=== PATIENT | male | born 1945 | race Caucasian/White ===

== ENCOUNTER 2016-06-21 08:51 | Day surgery (SDC) | payer MEDICARE ==
[~2016-06-21] VITALS: Ht 172.7 cm; Wt 107.2 kg
[~2016-06-21 08:51] MED LIST: ALBU18HF INH; CeFAZolin 2 Gm/50 mL D5W IV Premix IV ONE; FLAX100038 PO; KEN25CR EXT; LISI-567 PO; MEGE20TA PO; PRAZ2CAP2 PO; SIMV40TA5 PO
[2016-06-21] MEDS ORDERED: MetoCLOpramide 5 mg/mL 2 mL Inj ONE (08:52)
[2016-06-21] MEDS ORDERED: Ondansetron 2 mg/mL 2 mL Inj ONE (08:52)
[2016-06-21] MEDS ORDERED: Propofol 10,000 mCg/mL 20 mL Inj ONE (08:52)
[2016-06-21] MEDS ORDERED: fentaNYL-PF 50 mCg/mL 2 mL Inj ONE (08:52)
[2016-06-21] MEDS ORDERED: Dexamethasone 4 mg/mL Inj ONE (08:52)
[2016-06-21 09:53] VITALS: BP 119/73; PULSE 72; RESP 20; O2SAT 97
[2016-06-21] MEDS: Lactated Ringer's 1,000 ML IV SCH ×2 (10:05→11:14)
[2016-06-21] MEDS ORDERED: Iopamidol-300 50 mL Inj IV ONE (10:56)
[2016-06-21] MEDS ORDERED: Lactated Ringer's 1,000 ML IV SCH (11:37)
[2016-06-21] MEDS ORDERED: Lactated Ringer's 500 ML IV PRN (11:37)
[2016-06-21] MEDS ORDERED: Atropine 0.4 mg/mL Inj IVPUSH PRN (11:40)
[2016-06-21] MEDS ORDERED: Phenylephrine 10,000 mCg/mL Inj IVPUSH PRN (11:40)
[2016-06-21] MEDS ORDERED: Labetalol 5 mg/mL 4 mL Inj IV PRN (11:40)
[2016-06-21] MEDS ORDERED: Ondansetron 2 mg/mL 2 mL Inj IVPUSH PRN (11:40)
[2016-06-21] MEDS ORDERED: MetoCLOpramide 5 mg/mL 2 mL Inj IVPUSH PRN (11:40)
[2016-06-21] MEDS ORDERED: fentaNYL-PF 50 mCg/mL 2 mL Inj IVPUSH PRN (11:40)
[2016-06-21] MEDS ORDERED: EPHEDrine Sulfate 50 mg/mL Inj IVPUSH PRN (11:40)
[2016-06-21] MEDS ORDERED: hydrALAZINE 20 mg/mL Inj IVPUSH PRN (11:40)
[2016-06-21 12:05] VITALS: BP 105/81; PULSE 77; RESP 20; O2SAT 100
[2016-06-21] MEDS ORDERED: Lactated Ringer's 1,000 ML IV ONE (12:05)
[2016-06-21 12:10] VITALS: BP 127/77; PULSE 70; RESP 19; O2SAT 100
[2016-06-21 12:25] VITALS: BP 124/77; PULSE 62; RESP 18; O2SAT 99
[2016-06-21] MEDS ORDERED: HYDROcodone-APAP 5-325 mg Tablet PO PRN (12:25)
[2016-06-21 12:40] VITALS: BP 131/86; PULSE 70; RESP 16; O2SAT 98
[2016-06-21 12:56] VITALS: BP 145/81; PULSE 74; RESP 18; O2SAT 99
--- NOTE | 2016-06-21 13:54 | OP ---
[address] [address] OPERATIVE REPORT PATIENT: MARCIAL AREVALO : 1945 MR#: [id number] ADMIT: 06/21/2016 JOB ID: [id number] DATE OF SURGERY: 06/21/2016 PREOPERATIVE DIAGNOSIS(ES): Left hydroureteronephrosis. POSTOPERATIVE DIAGNOSIS(ES): Left hydroureteronephrosis. PROCEDURE PERFORMED: 1. Pelvic exam under anesthesia. 2. Cystoscopy with left retrograde pyelogram. 3. Left attempted ureteroscopy. 4. Left ureteral stent placement. SURGEON: Reema Vasquez MD. GRINDER GEAR: None. FINDINGS: 1. Normal pelvic exam without any lesions or masses. 2. Nodular tissue around the left ureteral orifice and trigone. 3. Left hydroureteronephrosis. ANESTHESIA: General. ESTIMATED BLOOD LOSS: None. DRAINS: A 6 x 26 left double-J ureteral stent. SPECIMENS: None. COMPLICATIONS: None. CONDITION: Stable. INDICATION FOR PROCEDURE: The patient is a 71-year-old gentleman who on evaluation for worsening renal function was found to have left hydroureteronephrosis and a possible left ureterovesical junction stone. He now presents for the aforementioned procedures. DESCRIPTION OF PROCEDURE: After informed consent was obtained, the patient was taken to the operating room. A time-out was performed identifying correct patient, surgical site, and procedure. General anesthesia was smoothly induced. He was given intravenous antibiotics just prior to the start of the procedure. A 22-English rigid cystoscope was applied to the patient's urethra and advanced into the bladder. The bladder was drained. The left ureteral orifice was seen in a bit of a mounded up appearance. The orifice appeared to be somewhat small. There was some nodular tissue around the orifice, as well as the surrounding trigone. It was attempted to cannulate the orifice with a 5-English open-ended Pollack catheter. It was not possible to do so. A wire was placed through the Pollack and used to guide the Pollack to the distal ureter. A retrograde pyelogram was performed. There was a torturous ureter, which was severely dilated. Next, two wires were then advanced to the renal pelvis which was a little difficult given the tortuosity of the ureter but they were advanced to the renal pelvis. Semi-rigid ureteroscopy was attempted multiple times to no avail. A 10-English dual lumen was attempted to be placed over the wire to dilate the ureteral orifice. This measure did not yield any further success in navigating the ureteroscope beyond the ureterovesical junction. It was decided to terminate the procedure and place a stent. One of the wires was backloaded into the cystoscope, and a 6 x 26 double-J ureteral stent was placed and navigated to the renal pelvis seen on fluoroscopy. The wire was then removed leaving a nice coil in the patient's bladder seen under direct vision. The cystoscope was then removed. A rectal exam was performed. There were no unusual masses detected on pelvic exam. The patient was then reversed from general anesthesia and taken to the PACU in good and stable condition. Postoperatively, it was discussed with the patient's the intraoperative findings. I have recommended bladder biopsy at the time of his next ureteroscopy. She voiced understanding. PHAM
--- NOTE | 2016-06-21 15:04 | DRSVH ---
PROCEDURE: X-RAY RETROGRADE UROGRAPHY INDICATIONS: LEFT CYSTO AND STENT PLACEMENT TECHNIQUE: 4 intra-operative images acquired by the Urology service. COMPARISON: None. FINDINGS: Multiple surgical clips in the pelvis. Images were obtained during left retrograde urograp hy showing a dilated ureter with subsequent stent placement. IMPRESSION: Intraoperative documentation of left retrograde pyelogram and stent placement Dictated by: Hector Muhammad M.D. on 06/21/2016 at 15:02 Approved by: Hector Muhammad M.D. on 06/21/2016 at 15:02
--- NOTE | 2016-06-21 16:47 | PCM.ANEP1 ---
Post Anesthesia Phase 1 PACU Phase 1 Assessment Vital Signs Vital Signs Date Time Temp Pulse Resp B/P Pulse Ox O2 Delivery O2 Flow Rate FiO2 06/21/16 12:56 74 18 145/81 99 06/21/16 12:40 70 16 131/86 98 Room Air 06/21/16 12:25 62 18 124/77 99 Room Air 06/21/16 12:10 70 19 127/77 100 Room Air 06/21/16 12:05 36.8 77 20 105/81 100 Simple Mask 10 06/21/16 09:53 36.0 72 20 119/73 97 Room Air Anesthetic Administered: GA Level of Alertness: Awake, talking BIRD's with Equal Strength: Yes Pain: No Nausea or Vomiting: No Oxygen Delivery: Room Air Lungs: Clear to Auscultation, Normal Air Movement Dermatome Level: Full Sensation Mohit Lafleur MD Jun 21, 2016 16:47
--- NOTE | 2016-06-21 16:47 | PCM.ANEP2 ---
Post Anesthesia Evaluation ASA/CMS Post Anesthesia VS in Patient's Normal Range?: Yes Resp Stable; Airway Patent?: Yes CV Function & Hydration Stable: Yes Mental Status Recovered?: Yes Pain control Satisfactory?: Yes N/V Control Satisfactory?: Yes Mohit Lafleur MD Jun 21, 2016 16:47
--- NOTE | 2016-06-21 16:47 | PCM.HPANE ---
Patient Data Surgeon Admitting Provider: Attending Provider:Reema Vasquez MD Primary Care Physician:Maribel Gil PA-C Other Provider:Bianka Pearce Anesthesia Reason for Visit Left Kidney Stone Ht/WT & BMI Height (Feet): 5 Height (Inches): 8.00 Weight (Kilograms): 107.2 Body Mass Index 35.00 Allergies Coded Allergies: ciprofloxacin (Verified Allergy, Severe, MUSCLE ACHES, FATIGUE, GENERAL MALAISE, 06/21/16) Past Anesthesia History Anesthesia History: Denies:: Anesthesia Reactions, Fam Anesthesia Reaction, Fam Malignant Hypertherm, Malignant Hyperthermia Diabetes History Hx Diabetes?: No MRSA MRSA: No Medications Hypertension Medication: Yes Home Meds Incl Beta Maryjo: No Reported Medications Albuterol Sulfate (Ventolin HFA Inhaler)200 Puff/18 Gm Inhaler2 Puff INH Q4 PRN For Wheezing #1 INHALER Ref 0 06/20/16 Triamcinolone Acet (Triamcinolone Acetonide Cream)1 Applic/0.25 Gm Cr1 Applic EXT BID #60 GM Ref 0 06/20/16 Simvastatin 40 Mg Oevhte36 Mg PO HS 30 Days Ref 0 06/20/16 Prazosin 2 Mg Capsule2 Mg PO HS 06/20/16 Megestrol Acetate 20 Mg Pgvqae52 Mg PO BID 06/20/16 Lisinopril 20 Mg Lvkcoy82 Mg PO DAILY 30 Days Ref 0 06/20/16 Flaxseed Oil ([place]-3 Flaxseed Oil)1,000 Mg Capsule1,000 Mg PO DAILY 06/20/16 Discontinued Reported Medications Oxycodone/APAP-Expunged Drug, Do Not Renew! (Percocet 5/325-Expunged Drug, Do Not Renew!)1 Each Tablet1 Tab PO Q4 PRN 11/09/11 Cephalexin-Expunged Drug, Do Not Renew! 500 Mg Oxpyvse837 Mg PO BID 11/09/11 Hydrochlorothiazide-Expunged, Do Not Renew! 25 Mg Xgeovk02.5 Mg PO DAILY 11/09/11 Aspirin-Expunged Drug, Do Not Renew! 325 Mg Jojrvh125 Mg PO DAILY 10/30/11 Lisinopril-Expunged Drug, Do Not Renew! 2.5 Mg Rngmnq21 Mg PO 10/30/11 Simvastatin-Expunged Drug, Choose New Med! 20 Mg Yeajre60 Mg PO HS 10/30/11 History History of ENT Problems?: Yes HEENT History: Positive for:: Cataracts (starting of ) Hearing Problem Sinus Problem (Chronic Sinus infections ) Hx of Heart Problems?: Yes Cardiovascular History: Positive for:: Hypertension (hyperlipidemia) Thrombophlebitis (blood clot to the leg) Hx of Respiratory Problem?: Yes Respiratory History: Positive for:: Asthma Use of Inhalers / NEBS Denies:: COPD Dyspnea Emphysema Oxygen Administration Pneumonia Tuberculosis Use of C-PAP Machine Hx Neurologic Problems?: Yes Neurological History: Positive for:: Dizziness (Benign Positional Vertigo / one time only 10/24) Headaches Denies:: CVA Multiple Sclerosis Parkinson's Disease Seizures TIA Hx of GI Problems?: No Hx of Problems?: Yes Genitourinary History: Positive for:: Kidney Stones (left kidney stone current admission problem ) Male Hx: Positive for:: Prostate Problems (Prostate CA, hx of RRPL) Denies:: Scrotal Mass Testicular Surgery Skin History: Denies:: History Skin Disorders? Hx Musculoskeletal Problems?: Yes Hx of Psycho/Social Problems?: No Hx Surgeries?: Yes (RT CTR Tonsils , Radical retropubic, pelvic lymph node diss ) Hx Any Other Health Problems?: Yes Other History: Positive for:: Cancer (Prostate CA) Denies:: Endocrine Disease Hospitalization Thyroid Disease History Blood Transfusions: Denies:: Blood Transfusions Hx Diabetes: No Hx Alcohol Use: YesHx Substance Use: NoHave You Smoked inLast 12 mo: No ( Quit 1969) Stop/Bang S-Snoring: Do You Snore Loudly: No T-Tired: feel tired, fatigued: No O-Obsered: Observed not breath: No P-Blood Pressure: treated: Yes B- Body Mass Index > 35 kg/m2: Yes A- Age over 50: Yes N- Neck Large Circumference: No G- Gender Male: Yes JELLY Total Score: 4 Risk Assessment Category Category 1A: Patient has history of documented sleep apnea, and HAS NOT received any narcotic, sedative or anesthesia administration during this stay. Category 1B: Patient has history of documented sleep apnea, and HAS received any narcotic , sedative or anesthesia administration during this stay Category 2: Patient has SUSPECTED Obstructive Sleep Apnea, and HAS received any narcotic , sedative or anesthesia administration during this stay. Category 3: Patient has SUSPECTED Obstructive Sleep Apnea and HAS NOT received narcotic, sedative or anesthesia administration during this stay. Category 4: Outpatient in Procedural Areas with known sleep apnea or who screen positive for High Risk via the STOP/BANG questionnaire. Exam Exam Vital Signs Vital Signs Date Time Temp Pulse Resp B/P Pulse Ox O2 Delivery O2 Flow Rate FiO2 06/21/16 09:53 36.0 72 20 119/73 97 Room Air General Appearance: Alert, Oriented X3, Cooperative, No Acute Distress HEENT/AIRWAY: MP 2 Lungs: Clear to Auscultation, Normal Air Movement Heart: Exam Unremarkable, Regular Rate/Rhythm, No Murmurs/Rubs/Gallops, Other Plan Impression Patient chart reviewed, patient interviewed and anesthestic plan with risks, benefits, and alternatives discussed, and informed consent obtained. NPO Status: 1730 ASA Physical Status: ASA2 Mod Systemic Disease Anesthetic Plan: GA Bene/Risks/Altern/Consents: Yes HP Complete Prior to Induction: Yes Mohit Lafleur MD Jun 21, 2016 09:57
[2016-07-03] MEDS ORDERED: lupron (13:03)
[2016-08-14] MEDS ORDERED: BICA50TA2 PO (15:59)
[2016-09-25] MEDS ORDERED: BETA1TAB19 PO (16:10)
[2016-09-25] MEDS ORDERED: OXYB5TAB10 PO (16:10)
[2016-09-25] MEDS ORDERED: FLAX100038 PO (16:10)
[2016-09-25] MEDS ORDERED: CALC-78 PO (16:10)
== END 2016-06-21 23:59 | disposition home or self-care (01) ==
LOC: SAS 08:51
PROVIDERS: ATTEND Urology
DX: N13.30 Unspecified hydronephrosis (principal); R94.4 Abnormal results of kidney function studies
CPT/HCPCS: 52332; 74420; C2617; J0690; J1100; J2405; J2765; J7120; Q9967

== ENCOUNTER 2016-06-28 14:23 | Day surgery (SDC) | payer MEDICARE ==
[~2016-06-28] VITALS: Ht 172.7 cm; Wt 107.8 kg
[2016-06-28] VITALS (11 sets, daily range): BP systolic 127–166; BP diastolic 75–99; PULSE 68–83; RESP 14–16; O2SAT 97–98
[~2016-06-28 14:23] MED LIST changes: +Lactated Ringer's 1,000 ML IV SCH
[2016-06-28] MEDS ORDERED: fentaNYL-PF 50 mCg/mL 2 mL Inj ONE (14:24)
[2016-06-28] MEDS ORDERED: Phenylephrine/NS-PF 100 mCg/mL 5 mL Syringe IVPUSH ONE (14:24)
[2016-06-28] MEDS ORDERED: Dexamethasone 4 mg/mL Inj ONE (14:24)
[2016-06-28] MEDS ORDERED: Propofol 10,000 mCg/mL 20 mL Inj ONE (14:24)
[2016-06-28] MEDS ORDERED: Ondansetron 2 mg/mL 2 mL Inj ONE (14:24)
[2016-06-28] MEDS ORDERED: CeFAZolin 2 Gm/50 mL D5W Duplex Bag IV ONE (14:53)
[2016-06-28] MEDS ORDERED: Lactated Ringer's 1,000 ML IV ONE (15:00)
[2016-06-28] MEDS ORDERED: DOCU-41 PO (15:49)
[2016-06-28] MEDS ORDERED: POLY17PO6 PO (15:49)
--- NOTE | 2016-06-28 16:55 | PCM.HPANE ---
Patient Data Date of Service: Jun 28, 2016 Surgeon Admitting Provider: Attending Provider:Reema Vasquez MD Primary Care Physician:Maribel Gil PA-C Other Provider:Bianka Pearce Anesthesia Reason for Visit Cystoscopy Ht/WT & BMI Height (Feet): 5 Height (Inches): 8 Weight (Kilograms): 107.8 Body Mass Index 36.00 Allergies Coded Allergies: ciprofloxacin (Verified Allergy, Severe, MUSCLE ACHES, FATIGUE, GENERAL MALAISE, 06/28/16) Past Anesthesia History Anesthesia History: Denies:: Anesthesia Reactions, Fam Anesthesia Reaction, Fam Malignant Hypertherm, Malignant Hyperthermia Diabetes History Hx Diabetes?: No MRSA MRSA: No Medications Hypertension Medication: Yes Home Meds Incl Beta Maryjo: No Reported Medications Docusate Sodium (Colace)100 Mg Wjdzlas849 Mg PO BID PRN For Constipation Ref 0 06/28/16 Polyethylene Glycol 3350 (Miralax)17 Gm Powd.pack17 Gm PO DAILY PRN For Constipation 06/28/16 Albuterol Sulfate (Ventolin HFA Inhaler)200 Puff/18 Gm Inhaler2 Puff INH Q4 PRN For Wheezing #1 INHALER Ref 0 06/20/16 Triamcinolone Acet (Triamcinolone Acetonide Cream)1 Applic/0.25 Gm Cr1 Applic EXT BID #60 GM Ref 0 06/20/16 Simvastatin 40 Mg Qnojbl17 Mg PO HS 30 Days Ref 0 06/20/16 Prazosin 2 Mg Capsule2 Mg PO HS 06/20/16 Megestrol Acetate 20 Mg Wzbpkq62 Mg PO BID 06/20/16 Lisinopril 20 Mg Fliiza27 Mg PO DAILY 30 Days Ref 0 06/20/16 Flaxseed Oil ([place]-3 Flaxseed Oil)1,000 Mg Capsule1,000 Mg PO BID 06/20/16 History History of ENT Problems?: Yes HEENT History: Positive for:: Cataracts (starting of ) Hearing Problem Sinus Problem (Chronic Sinus infections ) Hx of Heart Problems?: Yes Cardiovascular History: Positive for:: Hypertension (hyperlipidemia) Thrombophlebitis (blood clot to the leg) Denies:: AICD Heart Murmur Irregular Heartbeat Pacemaker Hx of Respiratory Problem?: Yes Respiratory History: Positive for:: Asthma Denies:: COPD Dyspnea Emphysema Oxygen Administration Pneumonia Tuberculosis Use of C-PAP Machine Hx Neurologic Problems?: Yes Neurological History: Positive for:: Dizziness (Benign Positional Vertigo / one time only 10/24) Headaches Denies:: CVA Multiple Sclerosis Parkinson's Disease Seizures Hx of GI Problems?: Yes Gastrointestinal History: Positive for:: Rectal Bleeding (recent post op constipation, strain has led to rectal bleeding) Hx of Problems?: Yes Genitourinary History: Positive for:: Kidney Stones (left kidney stone current admission problem ) Other Pertinent History: cysto, stent placed 06/21/16 Male Hx: Positive for:: Prostate Problems (Prostate CA, hx of RRPL) Denies:: Scrotal Mass Testicular Surgery Skin History: Denies:: History Skin Disorders? Hx Musculoskeletal Problems?: Yes Hx of Psycho/Social Problems?: No Hx Surgeries?: Yes (RT CTR Tonsils , Radical retropubic, pelvic lymph node diss ) Hx Any Other Health Problems?: Yes Other History: Positive for:: Cancer (Prostate CA) Denies:: Endocrine Disease Hospitalization Thyroid Disease History Blood Transfusions: Positive for:: Accept Blood Products? Denies:: Blood Transfusions Hx Diabetes: No Hx Alcohol Use: YesHx Substance Use: No Smoking Status: Former Smoker Have You Smoked inLast 12 mo: No (Quit 1969) Stop/Bang S-Snoring: Do You Snore Loudly: No T-Tired: feel tired, fatigued: No O-Obsered: Observed not breath: No P-Blood Pressure: treated: Yes B- Body Mass Index > 35 kg/m2: Yes A- Age over 50: Yes N- Neck Large Circumference: No G- Gender Male: Yes JELLY Total Score: 4 JELLY Risk Assessment: High Risk, =/>3 Yes JELLY Category 4 OutPt Procedure: Yes Risk Assessment Category Category 1A: Patient has history of documented sleep apnea, and HAS NOT received any narcotic, sedative or anesthesia administration during this stay. Category 1B: Patient has history of documented sleep apnea, and HAS received any narcotic , sedative or anesthesia administration during this stay Category 2: Patient has SUSPECTED Obstructive Sleep Apnea, and HAS received any narcotic , sedative or anesthesia administration during this stay. Category 3: Patient has SUSPECTED Obstructive Sleep Apnea and HAS NOT received narcotic, sedative or anesthesia administration during this stay. Category 4: Outpatient in Procedural Areas with known sleep apnea or who screen positive for High Risk via the STOP/BANG questionnaire. Exam Exam Vital Signs Vital Signs Date Time Temp Pulse Resp B/P Pulse Ox O2 Delivery O2 Flow Rate FiO2 06/28/16 15:00 36.7 82 16 127/80 97 Room Air General Appearance: Alert, Oriented X3, Cooperative, No Acute Distress HEENT/AIRWAY: MP 3, Neck Movement (full, thick), Mouth Opening (normal) Lungs: Clear to Auscultation, Normal Air Movement Heart: Exam Unremarkable, Regular Rate/Rhythm, No Murmurs/Rubs/Gallops Meds/Labs/Diagnostics Admission Meds Current Medications Lactated Ringer's (Lr) 1,000 ml @ ud STK-MED ONCE IV Last administered on 06/28t 15:00; Start 06/28/16 at 15:00; Stop 06/28/16 at 15:33; Status DC Plan Impression Patient chart reviewed, patient interviewed and anesthestic plan with risks, benefits, and alternatives discussed, and informed consent obtained. NPO Status: 0800 ASA Physical Status: ASA3 Severe Disease Anesthetic Plan: GA Bene/Risks/Altern/Consents: Yes HP Complete Prior to Induction: Yes Agus Machado MD Jun 28, 2016 16:55
[2016-06-28] MEDS ORDERED: Lactated Ringer's 1,000 ML IV SCH (17:41)
[2016-06-28] MEDS ORDERED: Lactated Ringer's 500 ML IV PRN (17:41)
[2016-06-28] MEDS ORDERED: EPHEDrine Sulfate 50 mg/mL Inj IVPUSH PRN (17:45)
[2016-06-28] MEDS ORDERED: Labetalol 5 mg/mL 4 mL Inj IV PRN (17:45)
[2016-06-28] MEDS ORDERED: Ondansetron 2 mg/mL 2 mL Inj IVPUSH PRN (17:45)
[2016-06-28] MEDS ORDERED: hydrALAZINE 20 mg/mL Inj IVPUSH PRN (17:45)
[2016-06-28] MEDS ORDERED: MetoCLOpramide 5 mg/mL 2 mL Inj IVPUSH PRN (17:45)
[2016-06-28] MEDS ORDERED: HYDROmorphone 1 mg/mL Inj IVPUSH PRN (17:45)
[2016-06-28] MEDS ORDERED: Atropine 0.4 mg/mL Inj IVPUSH PRN (17:45)
[2016-06-28] MEDS ORDERED: Phenylephrine 10,000 mCg/mL Inj IVPUSH PRN (17:45)
[2016-06-28] MEDS ORDERED: Dexamethasone 4 mg/mL Inj IVPUSH PRN (17:45)
[2016-06-28] MEDS ORDERED: fentaNYL-PF 50 mCg/mL 2 mL Inj IVPUSH PRN (17:45)
--- NOTE | 2016-06-28 18:03 | PCM.ANEP1 ---
Post Anesthesia Phase 1 PACU Phase 1 Assessment Date of Service: Jun 28, 2016 Vital Signs 36.4 131/82 90 19 98% FM Anesthetic Administered: GA Level of Alertness: Awake, talking BIRD's with Equal Strength: Yes Pain: No Nausea or Vomiting: No Oxygen Delivery: Simple Mask Lungs: Clear to Auscultation, Normal Air Movement Agus Machado MD Jun 28, 2016 18:03
--- NOTE | 2016-06-28 18:03 | PCM.ANEP2 ---
Post Anesthesia Evaluation ASA/CMS Post Anesthesia Date of Service: Jun 28, 2016 VS in Patient's Normal Range?: Yes Resp Stable; Airway Patent?: Yes CV Function & Hydration Stable: Yes Mental Status Recovered?: Yes Pain control Satisfactory?: Yes N/V Control Satisfactory?: Yes Agus Machado MD Jun 28, 2016 18:03
[2016-06-28] MEDS ORDERED: HYDROcodone-APAP 5-325 mg Tablet PO PRN (18:15)
--- NOTE | 2016-06-29 05:31 | OP ---
[address] [address] OPERATIVE REPORT PATIENT: MARCIAL AREVALO : 1945 MR#: [id number] ADMIT: 06/28/2016 JOB ID: [id number] DATE OF SURGERY: 06/28/2016 PREOPERATIVE DIAGNOSIS(ES): 1. Retained left ureteral stent. 2. Nodular bladder. POSTOPERATIVE DIAGNOSIS(ES): 1. Retained left ureteral stent. 2. Nodular bladder. PROCEDURE PERFORMED: 1. Cystoscopy. 2. Left ureteral stent removal. 3. Left retrograde pyelogram. 4. Left ureteroscopy. 5. Left ureteral stent placement. 6. Right retrograde pyelogram. 7. Bladder biopsy. SURGEON: Reema Vasquez MD. VETERINARY PARASITOLOGIST: None. FINDINGS: 1. Nodularity to the left trigone surrounding the left ureteral orifice. 2. No left ureteral stone. 3. Distorted position of the right ureteral orifice. ANESTHESIA: General. ESTIMATED BLOOD LOSS: Less than 5 mL. DRAINS: A 6 x 26 left double-J ureteral stent. SPECIMENS: Bladder biopsy. COMPLICATIONS: None. CONDITION: Stable. INDICATION FOR PROCEDURE: The patient is a 71-year-old gentleman who now presents with the aforementioned procedure after having undergone left ureteral stent placement. DESCRIPTION OF PROCEDURE: After informed consent was obtained, the patient was taken to the operating room. A time-out was performed identifying correct patient, surgical site, and procedure. General anesthesia was smoothly induced. He was given intravenous antibiotics prior to the start of the procedure. He was placed in the lithotomy position and all pressure points were identified and appropriately padded. His genitals were then prepped and draped in the usual sterile fashion. A 22-Bolivian rigid cystoscope was applied to the patient's urethral meatus and advanced into the bladder. The bladder was drained. The left ureteral orifice was seen with some bullous edema consistent with having a ureteral stent there. The stent was seen emanating from the orifice. It was grasped with stent graspers and manipulated down to the urethral meatus. It was cannulated with a sensor tip wire. It was navigated to the renal pelvis and seen under fluoroscopy. The stent was then removed and examined and ensured as removed in its entirety. A second sensor tip wire was then navigated to the renal pelvis as seen under fluoroscopy and attempted to perform semi-rigid ureteroscopy though the ureteroscope could not be advanced much beyond the ureteral orifice. A 12/14 access sheath, 28 cm long was then navigated to the distal ureter. The flexible ureteroscope was navigated to the ureter and a retrograde pyelogram was performed. There was some hydronephrosis there. The kidney and every calyx was examined. There were no stones. The ureteroscope was then brought down under direct vision. The ureter was normal. There was no evidence of stones present. The cystoscope and a 6 x 26 double J ureteral stent was loaded over it. The wire was then removed, leaving a nice coil in the patient's bladder as seen under direct vision. Upon examination of the bladder, there was another ureteral orifice seen with the urine effluxing from it. It was in a distorted position, given its history of prostatectomy, though it was not clear if this could have been an ectopic, duplicated left ureteral orifice. So it was cannulated with a 5-Bolivian open ended Pollack and a retrograde pyelogram was performed. This was determined at that point to be his right ureteral orifice given the location of the contrast on fluoroscopy. The Pollack was then removed. Cold cup biopsy forceps was then used to biopsy the somewhat nodular area around the left ureteral orifice, and it was sent off as bladder biopsy. This site was then fulgurated with Bugbee electrode. The patient's bladder was then drained and re-examined. There was excellent hemostasis. The patient was then reversed from general anesthesia and taken to the PACU in good and stable condition. PHAM
--- NOTE | 2016-07-02 14:45 | PATH ---
SURGICAL PATHOLOGY Attending Physician:Reema Vasquez, CASE STATUS: Signed Out PATIENT NAME: MARCIAL AREVALO PID: [id number] : 1945 DATE COLLECTED:06/28/2016 23:40 SPECIMEN: Bladder, Biopsy CLINICAL HISTORY: LEFT HYDRONEPHROSIS 1). 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 ICD10 CODE C79.11 GROSS DESCRIPTION: The specimen is received in one formalin filled container labeled with the patient's name, sublabeled "bladder" and consists of a 0.3 x 0.3 x 0.3 CM portion of tissue and blood which is entirely submitted in one cassette. David-white MICRO DESCRIPTION: Sections are of a biopsy of urinary bladder. Some urothelium is identified; however, most of the tissue is involved with a poorly-differentiated adenocarcinoma. In some areas, the tumor cells form small glandular structures, but in most areas they consist of undifferentiated cells with no organoid differentiation. Some signet ring type cells are present. The nuclei contain prominent nucleoli. Immunohistochemistry is performed in order to identify the origin of these cells. Immunohistochemistry results: PSA: Tumor cells strongly positive Cytokeratin 7: Tumor cells negative Cytokeratin 20: Tumor cells negative Mony-3: Tumor cells negative Interpretation: This immunophenotype clearly indicates that this is a poorly-differentiated adenocarcinoma consistent with origin from the patient' s known prostate carcinoma which was high-grade (see [id number]). This test was developed and its performance characteristics determined by [facility]. It has not been cleared or approved by the U. S. Food and Drug Administration. The FDA has determined that such clearance or approval is not necessary. This test is used for clinical purposes. It should not be regarded as investigational or for research. ICD-9 CODES: CPT CODES: 1: 11422, 13397, 62894, 04704, 08841 Electronically Signed Out Sabas Pappas MD [facility] Pathology [facility] [address], [place] [address] Technical component performed at [facility], [facility] [address], [place], [address]
[2016-07-03] MEDS ORDERED: lupron (13:03)
[2016-08-14] MEDS ORDERED: BICA50TA2 PO (15:59)
[2016-09-25] MEDS ORDERED: FLAX100038 PO (16:10)
[2016-09-25] MEDS ORDERED: OXYB5TAB10 PO (16:10)
[2016-09-25] MEDS ORDERED: BETA1TAB19 PO (16:10)
[2016-09-25] MEDS ORDERED: CALC-78 PO (16:10)
== END 2016-06-28 23:59 | disposition home or self-care (01) ==
LOC: SAS 14:23
PROVIDERS: ATTEND Urology
DX: C67.1 Malignant neoplasm of dome of bladder (principal); C61 Malignant neoplasm of prostate; I10 Essential (primary) hypertension; J45.909 Unspecified asthma, uncomplicated; R42 Dizziness and giddiness; Z87.891 Personal history of nicotine dependence; Z79.899 Other long term (current) drug therapy
CPT/HCPCS: 36415; 52214; 52332; 52351; 74420; 82565; 84520; C2617; J0690; J1100; J2370; J2405; J7120; Q9967

== ENCOUNTER 2016-09-27 07:50 | Day surgery (SDC) | payer MEDICARE ==
[~2016-09-27] VITALS: Ht 172.7 cm; Wt 109.5 kg
[2016-09-27] VITALS (9 sets, daily range): BP systolic 114–130; BP diastolic 69–85; PULSE 57–79; RESP 10–25; O2SAT 95–99
--- NOTE | 2016-09-27 07:44 | PCM.HPANE ---
Patient Data Surgeon Admitting Provider: Attending Provider:Reema Vasquez MD Primary Care Physician:Maribel Gil PA-C Other Provider:Bianka Pearce Anesthesia Reason for Visit Prostate Cancer Ht/WT & BMI Height (Feet): 5 Height (Inches): 8 Weight (Kilograms): 109.32 Body Mass Index 36.00 Allergies Coded Allergies: ciprofloxacin (Verified Adverse Reaction, Severe, MUSCLE ACHES, FATIGUE, GENERAL MALAISE, 09/25/16) Past Anesthesia History Anesthesia History: Denies:: Anesthesia Reactions, Fam Anesthesia Reaction, Fam Malignant Hypertherm, Malignant Hyperthermia Diabetes History Hx Diabetes?: No MRSA MRSA: No Medications Hypertension Medication: Yes (LISINOPRIL,PRAZOSIN) Reported Medications Oxybutynin Chloride 5 Mg Tablet5-10 Mg PO TID PRN prn Ref 0 09/25/16 Vit A/Vit C/Vit E/Zinc/Copper (Preservision Areds Tablet)1 Each Tablet1 Each PO DAILY 09/25/16 Flaxseed Oil ([place]-3 Flaxseed Oil)1,000 Mg Capsule1,000 Mg PO DAILY 09/25/16 Calcium Carbonate/Vitamin D3 (Calcium 500 + Vit D Caplet)1 Each Tablet1 Each PO DAILY 09/25/16 Bicalutamide (Casodex)50 Mg [id number] Mg PO DAILY 08/14/16 [lupron] No Conflict Check every 4 months 07/03/16 Polyethylene Glycol 3350 (Miralax)17 Gm Powd.pack17 Gm PO DAILY PRN For Constipation 06/28/16 Albuterol Sulfate (Ventolin HFA Inhaler)200 Puff/18 Gm Inhaler2 Puff INH Q4 PRN For Wheezing #1 INHALER Ref 0 06/20/16 Triamcinolone Acet (Triamcinolone Acetonide Cream)1 Applic/0.25 Gm Cr1 Applic EXT PRN #60 GM Ref 0 06/20/16 Simvastatin 40 Mg [id number] Mg PO HS 30 Days Ref 0 06/20/16 Prazosin 2 Mg Capsule2 Mg PO HS 06/20/16 Megestrol Acetate 20 Mg Wrhhyh67 Mg PO BID 06/20/16 Lisinopril 20 Mg [id number] Mg PO DAILY 30 Days Ref 0 06/20/16 History History of ENT Problems?: Yes HEENT History: Positive for:: Cataracts (starting of ) Hearing Problem Sinus Problem (Chronic Sinus infections ) Teeth Condition: Missing Teeth Other HEENT Pertinent History: S/P TONSILLECTOMY, DENTAL EXTRACTION 1-2 MONTHS AGO Hx of Heart Problems?: Yes Cardiovascular History: Positive for:: Hypertension (HYPERLIPIDEMIA) Thrombophlebitis (LE DVT HX) Denies:: AICD Heart Murmur Irregular Heartbeat Pacemaker Hx of Respiratory Problem?: Yes Respiratory History: Positive for:: Asthma Cough (CHRONIC) Dyspnea (BRYSON) Use of Inhalers / NEBS Denies:: COPD Emphysema Oxygen Administration Pneumonia (HX CHRONIC BRONCHITIS) Tuberculosis Use of C-PAP Machine (SNORES) Hx Neurologic Problems?: Yes Neurological History: Positive for:: Dizziness (Benign Positional Vertigo / one time only 10/24) Headaches Denies:: CVA Multiple Sclerosis Parkinson's Disease Seizures Hx of GI Problems?: Yes Gastrointestinal History: Positive for:: Rectal Bleeding (HX post op constipation, strain has led to rectal bleeding HX COLON POLYP) Hx of Problems?: Yes Genitourinary History: Positive for:: Kidney Stones (left kidney stone 06/2016 S/P CYSTO/STENT LT/BLADDER BX) Denies:: HX of Hemodialysis (CHRONIC RENAL INSUFFICIENCY) Other Pertinent History: C/OF LUTS-DECREASED STREAM,NOCTURIA,FREQUENCY, URGENCY,INCONTINENCE & DRIBBLING ED Male Hx: Positive for:: Prostate Problems (S/P RRP W/ PLND FOR CA PROSTATE CA=CURRENT PROBLEM) Denies:: Scrotal Mass Testicular Surgery Skin History: Positive for:: History Skin Disorders? (RASHES) Denies:: Pressure Ulcers Hx Musculoskeletal Problems?: Yes Hx of Psycho/Social Problems?: Yes Psycho Social History: Positive for:: Anxiety (PTSD) Hx Surgeries?: Yes (RRP W/ PLND,TOOTH EXTRACT.,CYSTO/STENT/BLADDER BX,RT CTR, TONSILS) Hx Any Other Health Problems?: Yes Other History: Positive for:: Cancer (Prostate CA) Denies:: Endocrine Disease Hospitalization Thyroid Disease History Blood Transfusions: Denies:: Blood Transfusions Hx Diabetes: No Hx Alcohol Use: YesHx Substance Use: No Smoking Status: Former Smoker Have You Smoked inLast 12 mo: No Stop/Bang S-Snoring: Do You Snore Loudly: Yes T-Tired: feel tired, fatigued: Yes O-Obsered: Observed not breath: No P-Blood Pressure: treated: Yes B- Body Mass Index > 35 kg/m2: Yes A- Age over 50: Yes N- Neck Large Circumference: Yes G- Gender Male: Yes JELLY Total Score: 7 Risk Assessment Category Category 1A: Patient has history of documented sleep apnea, and HAS NOT received any narcotic, sedative or anesthesia administration during this stay. Category 1B: Patient has history of documented sleep apnea, and HAS received any narcotic , sedative or anesthesia administration during this stay Category 2: Patient has SUSPECTED Obstructive Sleep Apnea, and HAS received any narcotic , sedative or anesthesia administration during this stay. Category 3: Patient has SUSPECTED Obstructive Sleep Apnea and HAS NOT received narcotic, sedative or anesthesia administration during this stay. Category 4: Outpatient in Procedural Areas with known sleep apnea or who screen positive for High Risk via the STOP/BANG questionnaire. Exam Exam General Appearance: Oriented X3, Cooperative, No Acute Distress HEENT/AIRWAY: MP 2 Lungs: Normal Air Movement Heart: Regular Rate/Rhythm Plan Impression Patient chart reviewed, patient interviewed and anesthestic plan with risks, benefits, and alternatives discussed, and informed consent obtained. NPO Status: 0800 ASA Physical Status: ASA3 Severe Disease Anesthetic Plan: GA Bene/Risks/Altern/Consents: Yes HP Complete Prior to Induction: Yes Claire Simons DO Sep 27, 2016 07:43
[~2016-09-27 07:50] MED LIST changes: +BETA1TAB19 PO; +BICA50TA2 PO; +CALC-78 PO; -CeFAZolin 2 Gm/50 mL D5W IV Premix IV ONE; +CeFAZolin Inj 2 GM in IV Premix 1 EACH IV ONE; +OXYB5TAB10 PO; +POLY17PO6 PO; +lupron
[2016-09-27] MEDS ORDERED: Ondansetron 2 mg/mL 2 mL Inj ONE (07:51)
[2016-09-27] MEDS ORDERED: fentaNYL-PF 50 mCg/mL 2 mL Inj ONE (07:51)
[2016-09-27] MEDS ORDERED: Phenylephrine/NS 100 mCg/mL 10 mL Syringe IVPUSH ONE (07:51)
[2016-09-27] MEDS ORDERED: Propofol 10,000 mCg/mL 20 mL Inj ONE (07:51)
[2016-09-27] MEDS ORDERED: Succinylcholine Chloride 20 mg/mL 5 mL Inj ONE (07:51)
[2016-09-27] MEDS ORDERED: EPHEDrine Sulfate 50 mg/mL Inj IVPUSH PRN (09:30)
[2016-09-27] MEDS ORDERED: HYDROmorphone 1 mg/mL Inj IVPUSH PRN (09:30)
[2016-09-27] MEDS ORDERED: Lactated Ringer's 1,000 ML IV SCH (09:30)
[2016-09-27] MEDS ORDERED: Ondansetron 2 mg/mL 2 mL Inj IVPUSH PRN (09:30)
[2016-09-27] MEDS ORDERED: Phenylephrine 10,000 mCg/mL Inj IVPUSH PRN (09:30)
[2016-09-27] MEDS ORDERED: fentaNYL-PF 50 mCg/mL 2 mL Inj IVPUSH PRN (09:30)
[2016-09-27] MEDS ORDERED: Lactated Ringer's 500 ML IV PRN (09:30)
[2016-09-27] MEDS ORDERED: MetoCLOpramide 5 mg/mL 2 mL Inj IVPUSH PRN (09:30)
[2016-09-27] MEDS ORDERED: HYDROcodone-APAP 5-325 mg Tablet PO PRN (10:25)
--- NOTE | 2016-09-27 10:34 | PCM.ANEP2 ---
Post Anesthesia Evaluation ASA/CMS Post Anesthesia VS in Patient's Normal Range?: Yes Resp Stable; Airway Patent?: Yes CV Function & Hydration Stable: Yes Mental Status Recovered?: Yes Pain control Satisfactory?: Yes N/V Control Satisfactory?: Yes Claire Simons DO Sep 27, 2016 10:34
--- NOTE | 2016-09-27 10:34 | PCM.ANEP1 ---
Post Anesthesia Phase 1 PACU Phase 1 Assessment Vital Signs Vital Signs Date Time Temp Pulse Resp B/P Pulse Ox O2 Delivery O2 Flow Rate FiO2 09/27/16 10:30 36.5 64 10 127/81 98 Room Air 09/27/16 10:25 62 11 125/77 98 Room Air 09/27/16 10:20 70 13 130/85 95 Room Air 09/27/16 10:15 73 25 122/73 95 Room Air 09/27/16 10:10 36.7 79 16 119/69 96 Room Air 09/27/16 08:32 36.0 66 16 114/74 97 Room Air Anesthetic Administered: GA Level of Alertness: Awake, talking BIRD's with Equal Strength: Yes Pain: No Oxygen Delivery: Room Air Lungs: Normal Air Movement Claire Simons DO Sep 27, 2016 10:34
--- NOTE | 2016-09-27 11:21 | DRSVH ---
PROCEDURE: X-RAY RETROGRADE UROGRAPHY INDICATIONS: LEFT STENT TECHNIQUE: 3 intra-operative images acquired by the Urology service. COMPARISON: [facility], CR, XR RETROGRADE UROGRAPHY, 06/28/2016, 17:31. [facility], CT, CT ABDOMEN PELVIS WO CONTRAST, 05/06/2016, 3:00 PM. FINDINGS: Prominence of the left renal collecting system redemonstrated in the left ureter is tortuo us distally and prominent in caliber. No definite intraluminal filling defects are seen. No extrava sation. IMPRESSION: Prominence of the left renal collecting system as well as tortuosity and prominence of th e distal left ureter. Dictated by: Tanmay Handley RRA Interpreted: Ronit Causey MD on 09/27/2016 at 11:19 Transcribed by: LIZ on 09/27/2016 at 11:20 Approved by: Ronit Causey M.D. on 09/27/2016 at 15:51
--- NOTE | 2016-09-27 20:26 | OP ---
[address] [address] OPERATIVE REPORT PATIENT: MARCIAL AREVALO : 1945 MR#: [id number] ADMIT: 09/27/2016 JOB ID: [id number] DATE OF SURGERY: 09/27/2016 PREOPERATIVE DIAGNOSIS(ES): Left hydronephrosis. POSTOPERATIVE DIAGNOSIS(ES): Left hydronephrosis. PROCEDURE PERFORMED: 1. Cystoscopy. 2. Left retrograde pyelogram. 3. Left ureteral stent exchange. SURGEON: Reema Vasquez MD. DIGITAL CONTENT COORDINATOR: None. FINDINGS: 1. Persistent nodularity involving the left bladder base and trigone. 2. Left moderate hydroureteronephrosis. ANESTHESIA: General. ESTIMATED BLOOD LOSS: None. DRAINS: A 6 x 26 left double-J ureteral stent. SPECIMENS: None. COMPLICATIONS: None. CONDITION: Stable. INDICATION FOR PROCEDURE: The patient is a 71-year-old gentleman with metastatic prostate cancer. Biopsy has proven that this recurrent prostate cancer is present in his bladder as well. He presents now for left ureteral stent exchange and retrograde pyelogram. DESCRIPTION OF THE PROCEDURE: After informed consent was obtained, patient was taken to the operating room. A time-out was performed identifying correct patient, surgical site, and procedure. General anesthesia was smoothly induced. He was given intravenous antibiotics just prior to the start of the procedure. He was placed in the lithotomy position and all pressure points were identified and appropriately padded. A 22-Chilean cystoscope was applied to the patient's urethra and advanced into the bladder. The bladder was drained. The bladder was inspected. There was nodularity involving the left trigone and bladder base consistent with his prior cystoscopy and known involvement of recurrent prostate cancer within the bladder. A stent grasper was used to remove the stent down to the urethral meatus. It was cannulated with a Sensor tip wire. The wire was then advanced to the renal pelvis, seen on fluoroscopy. The stent was then removed and examined. It was ensured as removed in its entirety. A 5-Chilean open-ended Pollack catheter was loaded over the wire and the wire was then removed. A retrograde pyelogram was performed. There was moderate hydroureteronephrosis. The Pollack was then loaded with a wire and the Pollack removed. A 6 x 26 double-J ureteral stent was loaded over the wire and advanced to the renal pelvis, seen under fluoroscopy. The wire was then removed leaving a nice coil in the patient's bladder as seen under direct vision. The bladder was then drained. The patient was then reversed from general anesthesia and taken to PACU in good and stable condition. PHAM
== END 2016-09-27 23:59 | disposition home or self-care (01) ==
LOC: SAS 07:50
PROVIDERS: ATTEND Urology
DX: N13.39 Other hydronephrosis (principal); N20.9 Urinary calculus, unspecified; C61 Malignant neoplasm of prostate; R97.20 Elevated prostate specific antigen [PSA]; R33.9 Retention of urine, unspecified; N28.9 Disorder of kidney and ureter, unspecified; I10 Essential (primary) hypertension; F43.10 Post-traumatic stress disorder, unspecified; I80.209 Phlebitis and thrombophlebitis of unspecified deep vessels of unspecified lower extremity; J45.909 Unspecified asthma, uncomplicated; R06.00 Dyspnea, unspecified; Z87.442 Personal history of urinary calculi; Z87.891 Personal history of nicotine dependence; Z86.010 Personal history of colon polyps
CPT/HCPCS: 52332; 74420; C2617; J0330; J0690; J2370; J2405; J3010; J7120; Q9967

== ENCOUNTER 2016-12-23 10:25 | Day surgery (SDC) | payer MEDICARE ==
[~2016-12-23] VITALS: Ht 172.7 cm; Wt 112.0 kg
[2016-12-23] VITALS (7 sets, daily range): BP systolic 104–130; BP diastolic 65–74; PULSE 60–78; RESP 13–16; O2SAT 96–100
[~2016-12-23 10:25] MED LIST changes: +CeFAZolin 2 Gm/50 mL D5W IV Premix IV ONE; -CeFAZolin Inj 2 GM in IV Premix 1 EACH IV ONE; +HYDR-4003 PO; +Lactated Ringer's 1,000 ML IV ONE; -Lactated Ringer's 1,000 ML IV SCH; +SENN1TAB90 PO
[2016-12-23] MEDS ORDERED: fentaNYL-PF 50 mCg/mL 2 mL Inj ONE (10:26)
[2016-12-23] MEDS ORDERED: Ondansetron 2 mg/mL 2 mL Inj ONE (10:26)
[2016-12-23] MEDS ORDERED: Dexamethasone 4 mg/mL Inj ONE (10:26)
[2016-12-23] MEDS ORDERED: Propofol 10,000 mCg/mL 20 mL Inj ONE (10:26)
[2016-12-23] MEDS ORDERED: Lactated Ringer's 1,000 ML IV ONE (10:30)
[2016-12-23] MEDS ORDERED: CeFAZolin 2 Gm/50 mL D5W Duplex Bag IV ONE (10:31)
[2016-12-23] MEDS ORDERED: Iopamidol-300 50 mL Inj IV ONE (11:28)
[2016-12-23] MEDS ORDERED: Phenylephrine 10,000 mCg/mL Inj IVPUSH PRN (11:30)
[2016-12-23] MEDS ORDERED: MetoCLOpramide 5 mg/mL 2 mL Inj IVPUSH PRN (11:30)
[2016-12-23] MEDS ORDERED: HYDROmorphone 1 mg/mL Inj IVPUSH PRN (11:30)
[2016-12-23] MEDS ORDERED: Dexamethasone 4 mg/mL Inj IVPUSH PRN (11:30)
[2016-12-23] MEDS ORDERED: Lactated Ringer's 1,000 ML IV SCH (11:30)
[2016-12-23] MEDS ORDERED: fentaNYL-PF 50 mCg/mL 2 mL Inj IVPUSH PRN (11:30)
[2016-12-23] MEDS ORDERED: Lactated Ringer's 500 ML IV PRN (11:30)
[2016-12-23] MEDS ORDERED: EPHEDrine Sulfate 50 mg/mL Inj IVPUSH PRN (11:30)
[2016-12-23] MEDS ORDERED: Ondansetron 2 mg/mL 2 mL Inj IVPUSH PRN (11:30)
--- NOTE | 2016-12-23 11:30 | PCM.HPANE ---
Patient Data Surgeon Admitting Provider: Attending Provider:Reema Vasquez MD Primary Care Physician:Maribel Gil PA-C Other Provider:Bianka Pearce Anesthesia Reason for Visit Left Hydronephrosis Ht/WT & BMI Height (Feet): 5 Height (Inches): 8 Weight (Kilograms): 111.58 Body Mass Index 37.00 Allergies Coded Allergies: ciprofloxacin (Verified Adverse Reaction, Severe, MUSCLE ACHES, FATIGUE, GENERAL MALAISE, 12/23/16) Past Anesthesia History Anesthesia History: Denies:: Anesthesia Reactions, Fam Anesthesia Reaction, Fam Malignant Hypertherm, Malignant Hyperthermia Diabetes History Hx Diabetes?: No MRSA MRSA: No Medications Hypertension Medication: Yes (LISINOPRIL) Reported Medications Sennosides/Docusate Sodium (Senna-Docusate Sodium Tablet)1 Each Tablet2 Each PO DAILY PRN prn 12/18/16 Oxybutynin Chloride 5 Mg Tablet5 Mg PO BID Ref 0 09/25/16 Flaxseed Oil ([place]-3 Flaxseed Oil)1,000 Mg Capsule1,000 Mg PO DAILY 09/25/16 Calcium Carbonate/Vitamin D3 (Calcium 500 + Vit D Caplet)1 Each Tablet1 Each PO DAILY 09/25/16 Bicalutamide (Casodex)50 Mg [id number] Mg PO DAILY 08/14/16 [lupron] No Conflict Check every 4 months 07/03/16 Polyethylene Glycol 3350 (Miralax)17 Gm Powd.pack17 Gm PO DAILY PRN For Constipation 06/28/16 Albuterol Sulfate (Ventolin HFA Inhaler)200 Puff/18 Gm Inhaler2 Puff INH Q4 PRN For Wheezing #1 INHALER Ref 0 06/20/16 Simvastatin 40 Mg Trpjmf47 Mg PO HS 30 Days Ref 0 06/20/16 Prazosin 2 Mg Capsule2 Mg PO HS 06/20/16 Megestrol Acetate 20 Mg Hcnief18 Mg PO BID 06/20/16 Lisinopril 20 Mg Pwgebl90 Mg PO DAILY 30 Days Ref 0 06/20/16 Discontinued Reported Medications Hydrocodone-Acetaminophen 5-325 mg 1 Each Tablet1 Tablet PO Q6H PRN For Pain Ref 0 12/18/16 Vit A/Vit C/Vit E/Zinc/Copper (Preservision Areds Tablet)1 Each Tablet1 Each PO DAILY 09/25/16 Triamcinolone Acet (Triamcinolone Acetonide Cream)1 Applic/0.25 Gm Cr1 Applic EXT PRN #60 GM Ref 0 06/20/16 History History of ENT Problems?: Yes HEENT History: Positive for:: Cataracts (starting of ) Hearing Problem Sinus Problem (Chronic Sinus infections ) Denture Type: None Teeth Condition: Within Normal Limits Missing Teeth Other HEENT Pertinent History: s/p tonsillectomy, dental extractions Hx of Heart Problems?: Yes Cardiovascular History: Positive for:: Hypertension (HYPERLIPIDEMIA) Thrombophlebitis (LE DVT HX) Denies:: AICD Heart Murmur Irregular Heartbeat Pacemaker Hx of Respiratory Problem?: Yes Respiratory History: Positive for:: Asthma Cough (CHRONIC) Dyspnea (BRYSON) Denies:: COPD Emphysema Oxygen Administration Pneumonia (HX CHRONIC BRONCHITIS) Tuberculosis Use of C-PAP Machine (SNORES) Hx Neurologic Problems?: Yes Neurological History: Positive for:: Dizziness (Benign Positional Vertigo / one time only 10/24) Headaches Denies:: CVA Multiple Sclerosis Parkinson's Disease Seizures Hx of GI Problems?: Yes Hx of Problems?: Yes Genitourinary History: Positive for:: Kidney Stones (left kidney stone 06/2016 S/P CYSTO/STENT LT/BLADDER BX) Denies:: HX of Hemodialysis (CHRONIC RENAL INSUFFICIENCY) Other Pertinent History: S/P LT STENT CHANGE 09/2016 C/OF LUTS LT HYDRONEPHROSIS=CURRENT PROBLEM Male Hx: Positive for:: Prostate Problems (S/P RRP W/ PLND FOR CA W/ METS ) Denies:: Scrotal Mass Testicular Surgery Skin History: Positive for:: History Skin Disorders? (RASHES) Denies:: Pressure Ulcers Hx Musculoskeletal Problems?: Yes Hx of Psycho/Social Problems?: Yes Psycho Social History: Positive for:: Anxiety (PTSD) Hx Surgeries?: Yes (RRP W/ PLND,TOOTH EXTRACT.,CYSTO/STENT/BLADDER BX,RT CTR, TONSILS,LT STENT C) Hx Any Other Health Problems?: Yes Other History: Positive for:: Cancer (Prostate CA) Denies:: Endocrine Disease (C/OF CHILLS) Hospitalization Thyroid Disease History Blood Transfusions: Denies:: Blood Transfusions Hx Diabetes: No Hx Alcohol Use: YesHx Substance Use: No Smoking Status: Former Smoker Have You Smoked inLast 12 mo: No Stop/Bang S-Snoring: Do You Snore Loudly: Yes T-Tired: feel tired, fatigued: Yes O-Obsered: Observed not breath: No P-Blood Pressure: treated: Yes B- Body Mass Index > 35 kg/m2: Yes A- Age over 50: Yes N- Neck Large Circumference: Yes G- Gender Male: Yes JELLY Total Score: 7 Risk Assessment Category Category 1A: Patient has history of documented sleep apnea, and HAS NOT received any narcotic, sedative or anesthesia administration during this stay. Category 1B: Patient has history of documented sleep apnea, and HAS received any narcotic , sedative or anesthesia administration during this stay Category 2: Patient has SUSPECTED Obstructive Sleep Apnea, and HAS received any narcotic , sedative or anesthesia administration during this stay. Category 3: Patient has SUSPECTED Obstructive Sleep Apnea and HAS NOT received narcotic, sedative or anesthesia administration during this stay. Category 4: Outpatient in Procedural Areas with known sleep apnea or who screen positive for High Risk via the STOP/BANG questionnaire. Exam Exam General Appearance: Alert, Oriented X3, Cooperative, No Acute Distress HEENT/AIRWAY: MP 2 Lungs: Clear to Auscultation Heart: Exam Unremarkable Plan Impression Patient chart reviewed, patient interviewed and anesthestic plan with risks, benefits, and alternatives discussed, and informed consent obtained. ASA Physical Status: ASA2 Mod Systemic Disease Anesthetic Plan: GA Bene/Risks/Altern/Consents: Yes HP Complete Prior to Induction: Yes Kendrick Carrero MD Dec 23, 2016 07:50
[2016-12-23] MEDS ORDERED: HYDROcodone-APAP 5-325 mg Tablet PO PRN (11:45)
--- NOTE | 2016-12-23 11:52 | PCM.ANEP1 ---
Post Anesthesia PACU Phase 1 Assessment Vital Signs Vital Signs Date Time Temp Pulse Resp B/P Pulse Ox O2 Delivery O2 Flow Rate FiO2 12/23/16 10:30 CPAP/BIPAP 12/23/16 10:30 36.8 68 16 130/74 99 Room Air Anesthetic Administered: GA Level of Alertness: Awake, talking Pain: No Nausea or Vomiting: No CV Function & Hydration Stable: Yes Airway Device: Oxygen Delivery: Room Air Lungs: Clear to Auscultation Dermatome Level: Full Sensation PACU Phase 2 Assessment Complications: No Patient Instructions Provided: N/A Kendrick Carrero MD Dec 23, 2016 11:52
--- NOTE | 2016-12-23 23:21 | OP ---
[address] [address] OPERATIVE REPORT PATIENT: MARCIAL AREVALO : 1945 MR#: [id number] ADMIT: 12/23/2016 JOB ID: [id number] DATE OF SURGERY: 12/23/2016 SURGEON: Reema Vasquez MD. SURGICAL SERVICES DIRECTOR: None. PREOPERATIVE DIAGNOSIS(ES): 1. Left hydroureteronephrosis. 2. History of metastatic prostate cancer. POSTOPERATIVE DIAGNOSIS(ES): 1. Left hydroureteronephrosis. 2. History of metastatic prostate cancer. PROCEDURE PERFORMED: 1. Cystoscopy with left ureteral stent removal. 2. Left retrograde pyelogram. 3. Left ureteral stent placement. FINDINGS: 1. Normal-appearing left ureteral caliber. Overall normal pyelogram. 2. Rikl-ep-kjtghszy nodularity surrounding the left bladder base and ureteral orifice. ANESTHESIA: General. ESTIMATED BLOOD LOSS: None. DRAINS: 6 x 28 left double-J ureteral stent. SPECIMENS: None. COMPLICATIONS: None. CONDITION: Stable. INDICATIONS FOR PROCEDURE: The patient is a 71-year-old man with a history of metastatic prostate cancer, which also advanced into the bladder. He has been managed with left ureteral stent. He now presents for the aforementioned procedure. DESCRIPTION OF PROCEDURE: After informed consent was obtained, the patient was taken to the operating room. A time-out was performed identifying correct patient, surgical site, and procedure. General anesthesia was smoothly induced. He was given intravenous antibiotics just prior to the start of the procedure. He was placed in the lithotomy position and all pressure points were identified and appropriately padded. His genitals were then prepped and draped in a sterile fashion. A 22-Belgian rigid scope was applied to the patient's urethra and advanced into the bladder and bladder was drained. The left ureteral stent was seen emanating from the left ureteral orifice. It was grasped with stent graspers and manipulated down to the urethral meatus. The stent was then loaded with a Sensor tip wire which was navigated to the renal pelvis. The stent was then removed off of the wire and examined on the back table. The stent was ensured as removed in its entirety. Left retrograde pyelogram was performed. It appeared overall normal. The wire was backloaded into the cystoscope and a 6 x 26 double-J ureteral stent was loaded over it and advanced to the renal pelvis seen under fluoroscopy. The wire was then removed leaving a nice coil in the patient's bladder as seen under direct vision. The bladder was then drained. The patient was then reversed from general anesthesia and taken to PACU in stable condition. PHAM
== END 2016-12-23 23:59 | disposition home or self-care (01) ==
LOC: SAS 10:25
PROVIDERS: ATTEND Urology
DX: N13.30 Unspecified hydronephrosis (principal); I10 Essential (primary) hypertension; E78.5 Hyperlipidemia, unspecified; J45.909 Unspecified asthma, uncomplicated; F43.10 Post-traumatic stress disorder, unspecified; Z85.46 Personal history of malignant neoplasm of prostate; Z86.010 Personal history of colon polyps; Z87.891 Personal history of nicotine dependence; Z87.442 Personal history of urinary calculi
CPT/HCPCS: 52332; 74420; C2617; J0690; J1100; J2405; J3010; J7120; Q9967